=== PATIENT | female | born 1965 | race Asian ===

== ENCOUNTER 2017-08-18 07:05 | Day surgery (SDC) | payer BC ==
[2017-08-18] MEDS ORDERED: Lactated Ringers 1,000 ML IV SCH (07:15)
[2017-08-18] MEDS ORDERED: Sodium Chloride 0.9% 10 ML Syringe FLUSH PRN (07:15)
[2017-08-18] MEDS ORDERED: Propofol 200 MG/20 ML SDV IV ONE (08:30)
--- NOTE | 2017-08-18 08:49 | PCM.OPNOTE ---
- General Post-Op/Procedure Note Date of Surgery/Procedure: 08/18/17 Operative Procedure(s): c scope Findings: normal exam Pre Op Diagnosis: screening Post-Op Diagnosis: normal exam Anesthesia Technique: MAC Primary Surgeon: Jaspal Joy (s) Anesthesia Provider: Kris Bullock Pathology: none Complications: None Condition: Good Free Text/Narrative:: see dictation
--- NOTE | 2017-08-18 12:00 | OR ---
DATE OF OPERATION: 08/18/2017 SURGEON: Jaspal Joy MD PROCEDURE PERFORMED: Screening colonoscopy. PREOPERATIVE DIAGNOSIS: Need for colon cancer screening. POSTOPERATIVE DIAGNOSIS: Normal colon. INDICATIONS FOR PROCEDURE: This is a 51-year-old female who presents now for screening colonoscopy. She was offered and accepted same. DESCRIPTION OF OPERATION: After an excellent IV sedation was administered, digital rectal exam was performed. No marked abnormality was noted. Flexible colonoscope was inserted and advanced to the cecum without difficulty. The prep was excellent. The following findings were noted: Ascending colon, unremarkable. Transverse colon, unremarkable. Descending colon, unremarkable. Sigmoid and rectum unremarkable. Colon was deflated as the scope was removed. The patient tolerated the procedure well and was taken to recovery room in good condition. Repeat scope in 10 years. /[id number] /MODL
== END 2017-08-18 09:57 | disposition home or self-care (01) ==
LOC: FB.SDS 07:05
PROVIDERS: ATTEND Surgery
DX: Z12.11 Encounter for screening for malignant neoplasm of colon (principal); K21.9 Gastro-esophageal reflux disease without esophagitis; Z79.899 Other long term (current) drug therapy
CPT/HCPCS: 45378; J2704; J7120

== ENCOUNTER 2023-06-02 07:40 | Day surgery (SDC) | payer BC ==
[2023-06-02] MEDS ORDERED: Lidocaine 2% 5 ML SDV IV ONE (07:41)
[2023-06-02] MEDS ORDERED: Lidocaine 2% 5 ML SDV ONE (07:41)
[2023-06-02] MEDS ORDERED: Propofol 200 MG/20 ML SDV IV ONE (07:41)
[2023-06-02] MEDS ORDERED: Sodium Chloride 0.9% 10 ML Syringe FLUSH PRN (07:45)
[2023-06-02] MEDS ORDERED: Lactated Ringers 1,000 ML IV SCH (07:45)
[2023-06-02] MEDS ORDERED: Simethicone Drops 40 MG/0.6 ML 30 ML Bottle PO ONE (09:26)
== END 2023-06-02 10:45 | disposition home or self-care (01) ==
LOC: FB.SDS 07:40
PROVIDERS: ATTEND Surgery
DX: K29.50 Unspecified chronic gastritis without bleeding (principal); K21.00 Gastro-esophageal reflux disease with esophagitis, without bleeding; K22.89 Other specified disease of esophagus; K44.9 Diaphragmatic hernia without obstruction or gangrene; Z98.890 Other specified postprocedural states; Z79.899 Other long term (current) drug therapy
CPT/HCPCS: 00731; 88305; A9270-GY; J2704; J7120